=== PATIENT | female | born 2000 | race Caucasian/White ===

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

== ENCOUNTER → 2020-02-24 | Outpatient (CLI) | payer OTHER ==
[2020-02-24 09:40] LABS: Basophils % (A) 0 %; Eosinophils # (A) 0.1 k/uL (0-0.7); Eosinophils % (A) 1 %; HCT 44.9 % (34.0-46.0); HGB 14.4 gm/dL (11.4-16.0); Lymphocytes # (A) 2.6 k/uL (1.0-4.8); Lymphocytes % (A) 31 %; MCH 29.5 pg (25.0-35.0); MCHC 32.1 g/dL (31.0-37.0); MCV 91.9 fL (80.0-100.0); Mean Platelet Volume 6.3; Monocytes # (A) 0.3 k/uL (0-1.0); Monocytes % (A) 4 %; Neutrophils # (A) 5.3 k/uL (1.3-7.7); Neutrophils % (A) 62 %; Platelet Count 482 k/uL (150-450); RBC 4.89 m/uL (3.80-5.40); RDW 11.9 % (11.5-15.5); WBC 8.6 k/uL (4.0-11.0)
[2020-02-24 15:05] LABS: African American GFR (CKD) 145.6 (60.0-200.0); Albumin 4.4 g/dL (3.80-4.90); Albumin/Globulin Ratio 1.63 (1.60-3.17); Anion Gap 9.1 mmol/L (4.00-12.00); BUN/Creat Ratio 21.43 Ratio (12.00-20.00); Calcium 9.6 mg/dL (8.7-10.3); Carbon Dioxide 25.9 mmol/L (21.6-31.8); Chol/HDL Ratio 3.14; Globulin 2.7 g/dL (1.6-3.3); LDL Cholesterol,Calculated 80.2 mg/dL (0.0-131.0); Non-African American GFR(CKD) 125.6 (60.0-200.0); Potassium 4.4 mmol/L (3.5-5.5); Total Bilirubin 0.3 mg/dL (0.2-1.2); Total Protein 7.1 g/dL (6.2-8.2); VLDL Calculation 24.8 mg/dL (5.00-40.00)
[2020-02-24 15:39] LABS: Hemoglobin A1C 11.4 % (4.0-6.0)
== END | disposition home or self-care (01) ==
LOC: LABWHC1 08:10
PROVIDERS: ATTEND Family Medicine
DX: F41.8 Other specified anxiety disorders (principal); G43.909 Migraine, unspecified, not intractable, without status migrainosus; E11.69 Type 2 diabetes mellitus with other specified complication
CPT/HCPCS: 36415; 80053; 80061; 82306; 83036; 84443; 85025

== ENCOUNTER → 2020-03-24 | Outpatient (CLI) | payer OTHER ==
--- NOTE | 2020-03-27 11:53 | HM ---
HOLTER MONITOR REPORT Patient was monitored for 24 hours. The baseline rhythm is a sinus mechanism with normal conduction, the average rate 105 beats per minute, minimum 69, maximum 172 beats per minute. Ventricular ectopic activity was not present, supraventricular ectopic activity was present in the form of rare single PACs. Episodes of sinus tachycardia was noted. Symptoms of lightheadedness, chest pain, suddenly awake, dizzy, did not correlate with any dysrhythmia. CONCLUSION: 1. Sinus mechanism, baseline rhythm with episode of sinus tachycardia. 2. Rare single PACs. 3. No ventricular ectopic activity. 4. Symptoms did not correlate with any dysrhythmia. MMODL / IJN: [id number] /
== END | disposition home or self-care (01) ==
LOC: RADECHMAIN 11:42
PROVIDERS: ATTEND Family Medicine
DX: R00.0 Tachycardia, unspecified (principal)
CPT/HCPCS: 93225; 93226

== ENCOUNTER → 2020-12-21 | Outpatient (CLI) | payer OTHER ==
--- NOTE | 2020-12-21 07:42 | MR ---
EXAMINATION TYPE: MR brain wo/w con DATE OF EXAM: 12/21/2020 COMPARISON: CT brain May 24, 2019 HISTORY: Chronic Migraines w/weakness and numbness TECHNIQUE: Multiplanar, multisequence images of the brain and brainstem is performed without and with IV contras t, utilizing 8ml mL intravenous Gadavist . FINDINGS: Diffusion weighted images demonstrate no evidence of a recent infarct or other diffusion ab normality. There is no extra-axial fluid collection or significant white matter signal abnormality. The ventricular system and cisternal spaces are normal in size and appearance. The brain volume is age appropriate. Midline structures demonstrate normal morphology. The craniocervical junction appears within normal limits. Post contrast images demonstrate no abnormal enhancement. The dural venous sinuses appear pa tent. The visualized sinuses are clear and the globes are intact. IMPRESSION: Unremarkable study. No suspicious abnormality is evident.
== END | disposition home or self-care (01) ==
LOC: RADMRIMAIN 06:37
PROVIDERS: ATTEND Family Medicine
DX: G43.909 Migraine, unspecified, not intractable, without status migrainosus (principal)
CPT/HCPCS: 70553; A9585

== ENCOUNTER → 2021-09-07 | Outpatient (CLI) | payer OTHER ==
[2021-09-07 18:41] LABS: Basophils # (A) 0.06 X 10*3/uL (0.00-0.10); Basophils % (A) 0.6 %; Eosinophils # (A) 0.15 X 10*3/uL (0.04-0.35); Eosinophils % (A) 1.6 %; HCT 43.6 % (37.2-46.3); HGB 14.2 g/dL (12.0-15.0); Immature Grans, Automated 0.2 %; Lymphocytes # (A) 2.97 X 10*3/uL (0.90-5.00); Lymphocytes % (A) 31.6 %; MCH 29.3 pg (27.0-32.0); MCHC 32.6 g/dL (32.0-37.0); MCV 89.9 fL (80.0-97.0); Monocytes # (A) 0.46 X 10*3/uL (0.20-1.00); Monocytes % (A) 4.9 %; NRBC Per 100 WBC 0 /100 WBCS (0.0-0.0); Neutrophils # (A) 5.74 X 10*3/uL (1.80-7.70); Neutrophils % (A) 61.1 %; Platelet Count 537 X 10*3/uL (140-440); RBC 4.85 X 10*6/uL (4.10-5.20); RDW 12.1 % (11.5-14.5)
[2021-09-07 19:19] LABS: ALT 23 U/L (8-44); AST 25 U/L (13-35); African American GFR (CKD) 141.3 (60.0-200.0); Albumin 4.3 g/dL (3.8-4.9); Albumin/Globulin Ratio 1.17 (1.60-3.17); Alkaline Phosphatase 130 U/L (41-126); BUN/Creat Ratio 13.43 Ratio (12.00-20.00); Blood Urea Nitrogen 9.5 mg/dL (9.0-27.0); Calcium 9.9 mg/dL (8.7-10.3); Carbon Dioxide 21.2 mmol/L (20.0-27.5); Chloride 99 mmol/L (96-109); Globulin 3.7 g/dL (1.6-3.3); Glucose 336 mg/dL (70-110); Potassium 4.3 mmol/L (3.5-5.5); Rheumatoid Factor, Qnt <10 IU/mL (0-15); Sodium 136 mmol/L (135-145)
[2021-09-07 19:23] LABS: Erythrocyte Sedimentation Rate 19 mm/Hr (0-20)
== END | disposition home or self-care (01) ==
LOC: LABWHC1 11:51
PROVIDERS: ATTEND Nurse Practitioner Acute Care
DX: R42 Dizziness and giddiness (principal); G43.909 Migraine, unspecified, not intractable, without status migrainosus; H53.9 Unspecified visual disturbance; E55.9 Vitamin D deficiency, unspecified; E53.9 Vitamin B deficiency, unspecified
CPT/HCPCS: 36415; 80053; 82306; 82607; 84207; 85025; 85652; 86038; 86431

== ENCOUNTER 2023-11-12 22:52 | Inpatient (IN) | payer MEDICAID, OTHER ==
--- NOTE | 2023-11-12 23:20 | ED ---
Psych HPI <Marcio Ortega - Last Filed: 11/13/23 10:38> - General Source: patient, RN notes reviewed, old records reviewed Mode of arrival: ambulatory Limitations: no limitations - History of Present Illness MD Complaint: suicidal ideation, feels depressed -: days(s) Associated Psychiatric Symptoms: depression, suicidal ideation History of same: Yes Quality: constant Context: significant life stressor Associated Symptoms: denies other symptoms Treatments Prior to Arrival: placed on mental health hold If Self Harm: admits thoughts of self harm <Stephen Jenkins - Last Filed: 11/15/23 02:44> - General Chief Complaint: Psychiatric Symptoms Stated Complaint: LE Petition Time Seen by Provider: 11/12/23 23:08 - History of Present Illness Initial Comments: This is a 23-year-old female who is presenting today for evaluation of suicidal thoughts with petition by the police department for psychiatric evaluation and treatment. Patient admits to current suicidal ideation (Stephen Jenkins) - Related Data Home Medications Medication Instructions Recorded Confirmed Albuterol Inhaler [Ventolin Hfa 2 puff INHALATION RT-Q4H PRN 11/13/23 11/13/23 Inhaler] Cetirizine HCl [Zyrtec] 10 mg PO DAILY 11/13/23 11/13/23 INSULIN LISPRO (For Pump) [humaLOG 0.01 units SQ-PUMP CONTINUOUS MDD 11/13/23 11/13/23 (For Pump)] 120 units Medroxyprogesterone Acetate 150 mg IM Q90D 11/13/23 11/13/23 [Depo-Provera] Metoprolol Succinate (ER) [Toprol 100 mg PO DAILY 11/13/23 11/13/23 Xl] Ondansetron Odt [Zofran Odt] 4 mg PO Q8H PRN 11/13/23 11/13/23 Pantoprazole [Protonix] 40 mg PO DAILY 11/13/23 11/13/23 Pregabalin [Lyrica] 150 mg PO TID 11/13/23 11/13/23 Rizatriptan Benzoate [Rizatriptan] 10 mg PO BID PRN MDD 20 MG 11/13/23 11/13/23 Topiramate 100 mg PO BID 11/13/23 11/13/23 Venlafaxine HCl [Effexor XR] 150 mg PO DAILY 11/13/23 11/13/23 hydrOXYzine HCL [Atarax] 10 mg PO HS PRN 11/13/23 11/13/23 Allergies Allergy/AdvReac Type Severity Reaction Status Date / Time fluoxetine AdvReac FACIAL TIC Verified 11/13/23 21:16 prochlorperazine AdvReac had Verified 11/13/23 21:16 [From Compazine] "psychotic episode" Review of Systems ROS Other: All systems not noted in ROS Statement are negative. <Marcio Ortega - Last Filed: 11/13/23 10:38> ROS Other: All systems not noted in ROS Statement are negative. <Stephen Jenkins - Last Filed: 11/15/23 02:44> ROS Statement: Those systems with pertinent positive or pertinent negative responses have been documented in the HPI. Past Medical History Additional Past Medical History / Comment(s): ORLY History of Any Multi-Drug Resistant Organisms: None Reported Additional Past Surgical History / Comment(s): ORLY Past Psychological History: Anxiety, Depression, PTSD Smoking Status: Vaper Past Alcohol Use History: Rare Past Drug Use History: Marijuana <Stephen Jenkins - Last Filed: 11/15/23 02:44> General Exam Limitations: no limitations General appearance: alert, in no apparent distress Head exam: Present: atraumatic, normocephalic, normal inspection Eye exam: Present: normal appearance, PERRL, EOMI. Absent: scleral icterus, conjunctival injection, periorbital swelling ENT exam: Present: normal exam, mucous membranes moist Neck exam: Present: normal inspection. Absent: tenderness, meningismus, lymphadenopathy Respiratory exam: Present: normal lung sounds bilaterally. Absent: respiratory distress, wheezes, rales, rhonchi, stridor Cardiovascular Exam: Present: regular rate, normal rhythm, normal heart sounds. Absent: systolic murmur, diastolic murmur, rubs, gallop, clicks GI/Abdominal exam: Present: soft, normal bowel sounds. Absent: distended, tenderness, guarding, rebound, rigid Extremities exam: Present: normal inspection, full ROM, normal capillary refill. Absent: tenderness, pedal edema, joint swelling, calf tenderness Back exam: Present: normal inspection Neurological exam: Present: alert, oriented X3, CN II-XII intact Psychiatric exam: Present: normal affect, normal mood Skin exam: Present: warm, dry, intact, normal color. Absent: rash <Stephen Jenkins - Last Filed: 11/15/23 02:44> Course <Stephen Jenkins - Last Filed: 11/15/23 02:44> Vital Signs 11/12/23 11/13/23 11/13/23 22:54 00:43 06:26 Temperature 98.1 F 98.1 F Pulse Rate 156 H 112 H 114 H Respiratory 16 18 18 Rate Blood Pressure 123/98 124/91 128/88 O2 Sat by Pulse 97 99 100 Oximetry 11/13/23 11/13/23 11/13/23 07:38 11:09 18:00 Temperature 98.2 F 98.7 F 98.8 F Pulse Rate 109 H 114 H 94 Respiratory 18 18 18 Rate Blood Pressure 130/91 114/80 135/91 O2 Sat by Pulse 100 100 98 Oximetry - Reevaluation(s) Reevaluation #1: 11/13/23 00:57 Medical records reviewed (Stephen Jenkins) Reevaluation #2: 11/13/23 00:57 Medically cleared for psychiatric evaluation (Stephen Jenkins) Reevaluation #3: Was pt. sent in by a medical professional or institution ([facility], [facility], urgent care, hospital, or penitentiary...) When possible be specific @ -no Did you speak to anyone other than the patient for history (EMS, parent, family, police, friend...)? What history was obtained from this source @ -no Did you review nursing and triage notes (agree or disagree)? Why? @ -agree Are old charts reviewed (outside hosp., previous admission, EMS record, old EKG, old radiological studies, urgent care reports/EKG's, penitentiary records)? Report findings @ -yes Differential Diagnosis (chest pain, altered mental status, abdominal pain women, abdominal pain men, vaginal bleeding, weakness, fever, dyspnea, syncope, headache, dizziness, GI bleed, back pain, seizure, CVA, palpatations, mental health, musculoskeletal)? @ -prior EKG interpreted by me (3pts min.). @ -no X-rays interpreted by me (1pt min.). @ -no CT interpreted by me (1pt min.). @ -no U/S interpreted by me (1pt. min.). @ -no What testing was considered but not performed or refused? (CT, X-rays, U/S, labs)? Why? @ -none What meds were considered but not given or refused? Why? @ -none Did you discuss the management of the patient with other professionals (professionals i.e. , PA, REBEAMER, lab, RT, psych nurse, social media content specialist, fitness manager, teacher, investment officer, correctional counselor/case manager)? Give summary @ -no Was smoking cessation discussed for >3mins.? @ -no Was critical care preformed (if so, how long)? @ -no Were there social determinants of health that impacted care today? How? (Homelessness, low income, unemployed, alcoholism, drug addiction, transportation, low edu. Level, literacy, decrease access to med. care, residential, rehab)? @ -none Was there de-escalation of care discussed even if they declined (Discuss DNR or withdrawal of care, Hospice)? DNR status @ -no What co-morbidities impacted this encounter? (DM, HTN, Smoking, COPD, CAD, Cancer, CVA, ARF, Chemo, Hep., AIDS, mental health diagnosis, sleep apnea, morbid obesity)? @ -none Was patient admitted / discharged? Hospital course, mention meds given and route, prescriptions, significant lab abnormalities, going to OR and other pertinent info. @ - 23 female will be admitted for psychiatric evaluation and treatment Transferred for psychiatric evaluation and treatment Undiagnosed new problem with uncertain prognosis? @ -no Drug Therapy requiring intensive monitoring for toxicity (Heparin, Nitro, Insulin, Cardizem)? @ -no Were any procedures done? @ -no Diagnosis/symptom? @ -Psychiatric illness Acute, or Chronic, or Acute on Chronic? @ -Acute Uncomplicated (without systemic symptoms) or Complicated (systemic symptoms)? @ -Complicated Side effects of treatment? @ -no Exacerbation, Progression, or Severe Exacerbation? @ -exacerbation Poses a threat to life or bodily function? How? (Chest pain, [place], [place], pneumonia, PE, COPD, DKA, ARF, appy, cholecystitis, CVA, Diverticulitis, Homicidal, Suicidal, threat to staff... and all critical care pts) @ -yes mental health (Stephen Jenkins) Reevaluation #4: Differential Mental Health Depression, anxiety, bipolar, psychosis, schizophrenia, borderline personality, situational depression, adjustment disorder, behavioral disorder, brain tumor, malingering, substance abuse, encephalopathy, medication reaction, dementia, hypothyroidism, degenerative neurologic disorder, lupus.... This is not meant to be all-inclusive list (Stephen Jenkins) Medical Decision Making - Lab Data Result diagrams: 11/14/23 10:02 11/14/23 10:02 <Stephen Jenkins - Last Filed: 11/15/23 02:44> - Medical Decision Making 23 female will be admitted for psychiatric evaluation and treatment (Stephen Jenkins) - Lab Data Lab Results 11/13/23 11/13/23 11/13/23 Range/Units 06:28 11:04 11:04 POC Glucose (mg/dL) 145 H (70-110) mg/dL POC Glu Wheel And Pinion Inspector ID Damaris Wayne Urine Color Yellow Urine Appearance Turbid H (Clear) Urine pH 5.5 (5.0-8.0) Ur Specific [place] 1.023 (1.001-1.035) Urine Protein Trace H (Negative) Urine Glucose (UA) 1+ H (Negative) Urine Ketones 2+ H (Negative) Urine Blood Negative (Negative) Urine Nitrite Negative (Negative) Urine Bilirubin Negative (Negative) Urine Urobilinogen <2.0 (<2.0) mg/dL Ur Leukocyte Esterase Large H (Negative) Urine RBC 2 (0-5) /hpf Urine WBC 35 H (0-5) /hpf Ur Squamous Epith Cells 3 (0-4) /hpf Urine Bacteria Rare H (None) /hpf Urine Mucus Many H (None) /hpf Urine HCG, Qual (Not Detectd) Urine Opiates Screen Not Detected (NotDetected) Ur Oxycodone Screen Not Detected (NotDetected) Urine Methadone Screen Not Detected (NotDetected) Ur Barbiturates Screen Not Detected (NotDetected) U Tricyclic Antidepress Not Detected (NotDetected) Ur Phencyclidine Scrn Not Detected (NotDetected) Ur Amphetamines Screen Not Detected (NotDetected) U Methamphetamines Scrn Not Detected (NotDetected) U Benzodiazepines Scrn Detected H (NotDetected) Urine Cocaine Screen Not Detected (NotDetected) U Marijuana (THC) Screen Not Detected (NotDetected) SARS-CoV-2 (PCR) (Not Detectd) 11/13/23 11/13/23 11/13/23 Range/Units 11:04 11:11 11:17 POC Glucose (mg/dL) 173 H (70-110) mg/dL POC Glu Wheel And Pinion Inspector ID Emily Cabello Urine Color Urine Appearance (Clear) Urine pH (5.0-8.0) Ur Specific [place] (1.001-1.035) Urine Protein (Negative) Urine Glucose (UA) (Negative) Urine Ketones (Negative) Urine Blood (Negative) Urine Nitrite (Negative) Urine Bilirubin (Negative) Urine Urobilinogen (<2.0) mg/dL Ur Leukocyte Esterase (Negative) Urine RBC (0-5) /hpf Urine WBC (0-5) /hpf Ur Squamous Epith Cells (0-4) /hpf Urine Bacteria (None) /hpf Urine Mucus (None) /hpf Urine HCG, Qual Not Detected (Not Detectd) Urine Opiates Screen (NotDetected) Ur Oxycodone Screen (NotDetected) Urine Methadone Screen (NotDetected) Ur Barbiturates Screen (NotDetected) U Tricyclic Antidepress (NotDetected) Ur Phencyclidine Scrn (NotDetected) Ur Amphetamines Screen (NotDetected) U Methamphetamines Scrn (NotDetected) U Benzodiazepines Scrn (NotDetected) Urine Cocaine Screen (NotDetected) U Marijuana (THC) Screen (NotDetected) SARS-CoV-2 (PCR) Not Detected (Not Detectd) 11/13/23 Range/Units 18:47 POC Glucose (mg/dL) 140 H (70-110) mg/dL POC Glu Wheel And Pinion Inspector ID Winchester, Sushma Urine Color Urine Appearance (Clear) Urine pH (5.0-8.0) Ur Specific [place] (1.001-1.035) Urine Protein (Negative) Urine Glucose (UA) (Negative) Urine Ketones (Negative) Urine Blood (Negative) Urine Nitrite (Negative) Urine Bilirubin (Negative) Urine Urobilinogen (<2.0) mg/dL Ur Leukocyte Esterase (Negative) Urine RBC (0-5) /hpf Urine WBC (0-5) /hpf Ur Squamous Epith Cells (0-4) /hpf Urine Bacteria (None) /hpf Urine Mucus (None) /hpf Urine HCG, Qual (Not Detectd) Urine Opiates Screen (NotDetected) Ur Oxycodone Screen (NotDetected) Urine Methadone Screen (NotDetected) Ur Barbiturates Screen (NotDetected) U Tricyclic Antidepress (NotDetected) Ur Phencyclidine Scrn (NotDetected) Ur Amphetamines Screen (NotDetected) U Methamphetamines Scrn (NotDetected) U Benzodiazepines Scrn (NotDetected) Urine Cocaine Screen (NotDetected) U Marijuana (THC) Screen (NotDetected) SARS-CoV-2 (PCR) (Not Detectd) Disposition Time of Disposition: 10:39 <Marcio Ortega M - Last Filed: 11/13/23 10:38> <Stephen Jenkins - Last Filed: 11/15/23 02:44> Clinical Impression: Depression, Suicidal ideation Disposition: TRANSFER TO PSYCH HOSP/UNIT
[2023-11-13 06:30] LABS: Glucose,Whole Blood 145 mg/dL (70-110)
[2023-11-13] MEDS: ONDANSETRON ODT 4 MG TAB PO STA (09:07)
[2023-11-13 11:18] LABS: Glucose,Whole Blood 173 mg/dL (70-110)
[2023-11-13] MEDS ORDERED: ALBUTEROL NEBULIZED 2.5 MG/3 ML INHALATION PRN (11:19)
[2023-11-13] MEDS: METOPROLOL SUCCINATE (ER) 100 MG TAB.ER.24H PO STA (11:33)
[2023-11-13 11:37] LABS: Amphetamine Screen,Urine Not Detected (NotDetected); Barbiturate Screen,Urine Not Detected (NotDetected); Benzodiazepines Screen,Urine Detected (NotDetected); Cocaine Screen,Urine Not Detected (NotDetected); Methadone Screen, Urine Not Detected (NotDetected); Opiate Screen,Urine Not Detected (NotDetected); Oxycodone Screen, Urine Not Detected (NotDetected); Phencyclidine Screen,Urine Not Detected (NotDetected); Tricyclic Antidepressant,Urine Not Detected (NotDetected); Urn Cannabinoid Scrn Not Detected (NotDetected)
[2023-11-13] MEDS: PREGABALIN 75 MG CAP PO SCH (16:36)
[2023-11-13] MEDS: ONDANSETRON ODT 4 MG TAB PO PRN (17:51)
[2023-11-13 18:49] LABS: Glucose,Whole Blood 140 mg/dL (70-110)
[2023-11-13] MEDS ORDERED: LORazepam 2 MG/ML INJ IM PRN (19:53)
[2023-11-13] MEDS ORDERED: MAG HYDROX/AL HYDROX/SIMETH 355 ML BOTTLE PO PRN (19:53)
[2023-11-13] MEDS ORDERED: MAGNESIUM HYDROXIDE 2,400 MG/30 ML CUP PO PRN (19:53)
[2023-11-13] MEDS ORDERED: IBUPROFEN 600 MG TAB PO PRN (19:53)
[2023-11-13] MEDS: TOPIRAMATE 100 MG TAB PO SCH (21:09)
[2023-11-13] MEDS: INSULIN ASPART (NovoLOG) 100 UNIT/ML VIAL SQ SCH (21:10)
[2023-11-13 21:11] LABS: Glucose,Whole Blood 184 mg/dL (70-110)
[2023-11-13] MEDS ORDERED: VENLAFAXINE HCL ER 150 MG CAP PO SCH (21:14)
[2023-11-13 21:31] LABS: Appearance,Urine Turbid (Clear); Bacteria,Urine Rare /hpf; Bilirubin,Urine Negative (Negative); Blood,Urine Negative (Negative); Color,Urine Yellow; Glucose,Urine (UA) 1+ (Negative); Leukocyte Esterase,Urine Large (Negative); Mucus,Urine Many /hpf; Nitrite,Urine Negative (Negative); PH, Urine 5.5 (5.0-8.0); Protein,Urine Trace (Negative); RBC,Urine 2 /hpf (0-5); Specific Gravity,Urine 1.023 (1.001-1.035); Squamous Epithelial Cell,Urine 3 /hpf (0-4); Urobilinogen,Urine <2.0 mg/dL (<2.0); WBC,Urine 35 /hpf (0-5)
[2023-11-13 21:37] LABS: Ketones,Urine 2+ (Negative)
[2023-11-13] MEDS: INSULIN LISPRO (For Pump) 100 UNIT/ML VIAL SQ-PUMP SCH (21:41)
[2023-11-13] MEDS ORDERED: DEXTROSE 50% SYRINGE 50 ML IVP PRN ×2 (21:43)
[2023-11-13] MEDS: VENLAFAXINE HCL ER 150 MG CAP PO SCH (21:48)
[2023-11-13] MEDS: INSULIN DETEMIR (LEVEMIR) 100 UNIT/ML SYR SQ SCH (22:18)
[2023-11-13] MEDS: guaiFENesin SYRUP 100MG/5ML 200 MG/10 ML CUP PO PRN (22:18)
[2023-11-13] MEDS: SUMAtriptan succinate 50 MG TAB PO PRN (22:18)
[2023-11-14 00:08] LABS: Glucose,Whole Blood 238 mg/dL (70-110)
[2023-11-14] MEDS: hydrOXYzine HCL 10 MG TAB PO PRN (00:22)
[2023-11-14] MEDS: PANTOPRAZOLE 40 MG TABLET PO SCH (00:22)
[2023-11-14 05:38] LABS: Glucose,Whole Blood 381 mg/dL (70-110)
[2023-11-14 07:42] LABS: Glucose,Whole Blood 351 mg/dL (70-110)
[2023-11-14] MEDS ORDERED: VENLAFAXINE HCL ER 150 MG CAP PO SCH (09:00)
[2023-11-14] MEDS ORDERED: PANTOPRAZOLE 40 MG TABLET PO SCH (09:00)
[2023-11-14] MEDS: NICOTINE 14MG/24HR PATCH TRANSDERM SCH (09:08)
[2023-11-14] MEDS: METOPROLOL SUCCINATE (ER) 100 MG TAB.ER.24H PO SCH (09:08)
[2023-11-14] MEDS: LORATADINE 10 MG TAB PO SCH (09:09)
[2023-11-14 09:46] LABS: Glucose,Whole Blood 322 mg/dL (70-110)
[2023-11-14] MEDS: INSULIN DETEMIR (LEVEMIR) 100 UNIT/ML SYR SQ SCH ×2 (10:56→21:34)
[2023-11-14 11:03] LABS: Glucose,Whole Blood 389 mg/dL (70-110)
[2023-11-14 11:25] LABS: ALT 17 U/L (4-34); AST 22 U/L (14-36); African American GFR (CKD) >90 (>60 ml/min/1.73 sqM); Albumin 4.3 g/dL (3.5-5.0); Alkaline Phosphatase 116 U/L (38-126); Anion Gap 15 mmol/L; Blood Urea Nitrogen 6 mg/dL (7-17); Calcium 10.2 mg/dL (8.4-10.2); Carbon Dioxide 16 mmol/L (22-30); Chloride 107 mmol/L (98-107); Glucose 375 mg/dL (74-99); Non-African American GFR(CKD) >90 (>60 ml/min/1.73 sqM); Potassium 4.4 mmol/L (3.5-5.1); Sodium 138 mmol/L (137-145); Total Protein 7.7 g/dL (6.3-8.2)
[2023-11-14 11:31] LABS: Basophils # (A) 0.1 k/uL (0-0.2); Basophils % (A) 0 %; Eosinophils # (A) 0.1 k/uL (0-0.7); Eosinophils % (A) 1 %; HCT 47.4 % (34.0-46.0); HGB 15.5 gm/dL (11.4-16.0); Lymphocytes # (A) 2.3 k/uL (1.0-4.8); Lymphocytes % (A) 17 %; MCH 28.7 pg (25.0-35.0); MCHC 32.6 g/dL (31.0-37.0); MCV 88.1 fL (80.0-100.0); Mean Platelet Volume 6.9; Monocytes # (A) 0.9 k/uL (0-1.0); Monocytes % (A) 6 %; Neutrophils # (A) 10.1 k/uL (1.3-7.7); Neutrophils % (A) 74 %; Platelet Count 705 k/uL (150-450); RBC 5.38 m/uL (3.80-5.40); RDW 13.3 % (11.5-15.5); WBC 13.8 k/uL (3.8-10.6)
[2023-11-14] MEDS: INSULIN ASPART (NovoLOG) 100 UNIT/ML VIAL SQ SCH ×3 (12:00→17:43)
[2023-11-14] MEDS ORDERED: hydrOXYzine pamoate 25 MG CAP PO PRN (12:15)
--- NOTE | 2023-11-14 12:26 | P.HP ---
Psychiatric H&P - . H&P Date: 11/14/23 History & Physical: Allergies Allergy/AdvReac Type Severity Reaction Status Date / Time fluoxetine AdvReac FACIAL TIC Verified 11/13/23 21:16 prochlorperazine AdvReac had Verified 11/13/23 21:16 [From Compazine] "psychotic episode" Vital Signs Temp 97.8 F 11/13/23 19:49 Pulse 106 H 11/13/23 19:49 Resp 16 11/13/23 19:49 BP 125/77 11/13/23 19:49 Pulse Ox 96 11/13/23 19:49 FiO2 Intake & Output 11/13/23 11/14/23 11/14/23 18:59 06:59 18:59 Weight 105.6 kg Laboratory Last Values POC Glucose (mg/dL) 351 mg/dL (70-110) H 11/14/23 07:41 POC Glu Contract Sheltered Workshop Supervisor ID Patricia Madrid 11/14/23 07:41 Urine Color Yellow 11/13/23 11:04 Urine Appearance Turbid (Clear) H 11/13/23 11:04 Urine pH 5.5 (5.0-8.0) 11/13/23 11:04 Ur Specific [place] 1.023 (1.001-1.035) 11/13/23 11:04 Urine Protein Trace (Negative) H 11/13/23 11:04 Urine Glucose (UA) 1+ (Negative) H 11/13/23 11:04 Urine Ketones 2+ (Negative) H 11/13/23 11:04 Urine Blood Negative (Negative) 11/13/23 11:04 Urine Nitrite Negative (Negative) 11/13/23 11:04 Urine Bilirubin Negative (Negative) 11/13/23 11:04 Urine Urobilinogen <2.0 mg/dL (<2.0) 11/13/23 11:04 Ur Leukocyte Esterase Large (Negative) H 11/13/23 11:04 Urine RBC 2 /hpf (0-5) 11/13/23 11:04 Urine WBC 35 /hpf (0-5) H 11/13/23 11:04 Ur Squamous Epith Cells 3 /hpf (0-4) 11/13/23 11:04 Urine Bacteria Rare /hpf (None) H 11/13/23 11:04 Urine Mucus Many /hpf (None) H 11/13/23 11:04 Urine HCG, Qual Not Detected (Not Detectd) 11/13/23 11:04 Urine Opiates Screen Not Detected (NotDetected) 11/13/23 11:04 Ur Oxycodone Screen Not Detected (NotDetected) 11/13/23 11:04 Urine Methadone Screen Not Detected (NotDetected) 11/13/23 11:04 Ur Barbiturates Screen Not Detected (NotDetected) 11/13/23 11:04 U Tricyclic Antidepress Not Detected (NotDetected) 11/13/23 11:04 Ur Phencyclidine Scrn Not Detected (NotDetected) 11/13/23 11:04 Ur Amphetamines Screen Not Detected (NotDetected) 11/13/23 11:04 U Methamphetamines Scrn Not Detected (NotDetected) 11/13/23 11:04 U Benzodiazepines Scrn Detected (NotDetected) H 11/13/23 11:04 Urine Cocaine Screen Not Detected (NotDetected) 11/13/23 11:04 U Marijuana (THC) Screen Not Detected (NotDetected) 11/13/23 11:04 SARS-CoV-2 (PCR) Not Detected (Not Detectd) 11/13/23 11:11 11/14/23 08:51 IDENTIFYING DATA: Patient is a 23-year-old female who is single, has no children, and lives with mom and sister. Unemployed. HPI: Patient presented to the hospital ED on 11/11. As per EPS note, "Clinician met with Abigail in ER 14 to eval. Cl lying in bed, A/O x4 presenting with SI w attempt via cutting right wrist supperficiallly. Cl initially on PET via PD that states " Patient stated that she intends to bleed herself out via cutting." Cl is reported to have used a gill box fixer. Cl states this was brought on by recent break up with their partner of 12 mo's including anxiety/depression over last 30 days that has increased. Cl reports hx of depression/anxiety/PTSD. Cl presents tearful, overwhelmed, anxious, crying spells, complaints of poor medical care, feels they are dehydrated, nausea, situational/circumstatial stressors. Cl states " I feel like my world is falling apart, she meant everything to me." Cl reports loss of interest, motivation, low energy, isolating at times, and aud hallucinations (muffled voices) and occasional paranoia. Cl reports using THC to cope. Cl is not working and has " lost" their soc sec benefits recently. Cl reports medical issues has added to the stress." Patient was petitioned by police, however, signed in voluntarily. Upon todays interview, she states that she is going through a really tough break up. They were together just under a year. She states that her fiance told her she had found some one else, who lives in [place]. This happened about two weeks ago. She states that she has had anxiety and depression for the past 10 years, but recently it has gotten worse. He ex called police to do a welfare check on the patient, and the cross tie tram loader brought her into the hospital. She states that she cut her wrist with a gill box fixer, only to self harm. She states she hears spirits talking to her. She states that her sleep has not been good, and she normally has problems sleeping. She states she has not had an appetite lately. Patient denies any suicidal or homicidal ideations intent or plan. At this time patient denies any auditory or visual hallucinations. Patient denies any flight of ideas racing thoughts and increased in goal directed behavior. Patient admits to using marijuana, however, UDS was negative. No cigarettes or alcohol. PAST PSYCHIATRIC HISTORY: Patient states that she does not have any outpatient psych provider. She is prescribed Effexor XR 150mg from her PCP. She has never been admitted to a psychiatric facility. Patient denies any history of suicide attempts in the past. PMH:As per ER note ALLERGIES: as per EMR CHEMICAL DEPENDENCY HISTORY: as per HPI FAMILY PSYCHIATRIC/SUBSTANCE USE HISTORY: anxiety, depression and PTSD in her family. SOCIAL HISTORY: Patient was born and raised in [place], [place]. College graduate. [employer] in [employer]. Single, not , no children. Lives with her mom and sister. Unemployed.. MENTAL STATUS EXAM: General Appearance: Patient appears to be stated age is alert, directable, and attempts to cooperate. Patient appears to have fair hygiene and grooming. Short blonde hair, shaved around the bottom, multiple piercings and tattoos, wearing glasses. Dressed in a hospital gown. Behavior: Patient is seated without any agitated behavior. Speech: Patient's speech is fluent and nonpressured. Mood/Affect: Patient reports their mood is [depressed and anxious, affect is congruent and constricted. Suicidality/Homicidality: Patient denies having any homicidal ideation intent or plan. Denies any suicidal ideations intent or plan Perceptions: Patient denies any visual hallucinations and denies any auditory hallucinations, however states she hears spirits speaking to her. Though content/process: There is no evidence of any delusional thought content and thought process is linear and goal-directed. Memory and concentration: AOX3, grossly intact for the purposes of this session. Can spell "WORLD" backwards Judgment and insight: poor STRENGTHS/WEAKNESSES: strength is that patient is [resilient]. Weakness is that patient [has poor judgment and is impulsive INTELLECT: average IMPRESSIONS: Major depressive disorder, without psychotic features anxiety disorder unspecified rule out personality disorder likely cluster b [cannabis use disorder] PLAN: -Patient is admitted under voluntary status to [facility] for stabilization of psychiatric symptoms and safety. Patient has signed adult voluntary form and medication consent and is placed in patient's chart. -Medications : Will start patient on Remeron 15mg qhs for sleep/mood adjunct, Effexor XR 225mg qhs for mood/anxiety, add visteral 25mg q6 hours PRN for anxiety -Ativan and Haldol PRN for agitation/aggression -Patient was informed of the risks, benefits and side effects of the medication and patient verbally consented to taking the medications. -Internal Medicine consult to perform medical evaluation and physical. -NRT - nonsmoker - on board for discharge planning. Encourage patient to participate in groups to work on coping skills. 11/14/23 11:46 11/14/23 12:20
[2023-11-14 12:54] LABS: Glucose,Whole Blood 392 mg/dL (70-110)
--- NOTE | 2023-11-14 13:11 | P.CONS ---
History of Present Illness - Reason for Consult Consult date: 11/14/23 medical management, insulin Requesting physician: Calvin oJhnson - History of Present Illness This is a 23-year-old female with medical history significant for type 1 diabetes mellitus 1 dependent, asthma, fibromyalgia, anxiety/depression/PTSD and reports marijuana use. Patient was brought into the hospital overnight secondary to suicidal ideations was petitioned for mental health evaluation and treatment. Patient lives with mother and sister states she has good family support. Recently going through a "and breakup and other life issues." Today states overall her mood has improved. Patient is maintained on an insulin pump which has been removed while on the psychiatric unit secondary to suicidal thoughts and the safety factor of patient having this insulin pump with continuous basal insulin infusing the ability to give herself insulin at her discretion. Additionally patients continuous glucose monitoring for her pump is used with her cell phone which she is unable to have on the unit as well. Patient does report headache today, states she feels like she may be going into DKA. Her blood glucose has been increasing. Patient's urine drug toxicology did test positive for benzodiazepines, urinalysis was not suggestive of any infection there was 2+ ketones 1+ glucose, her [id number] glucose has been running in the 100s and now up to 322. We will add additional long-acting insul in. REVIEW OF SYSTEMS: CONSTITUTIONAL: No fever, no malaise, no fatigue. Reports headache HEENT: No recent visual problems or hearing problems. Denied any sore throat. CARDIOVASCULAR: No chest pain, orthopnea, PND, no palpitations, no syncope. PULMONARY: No shortness of breath, no cough, no hemoptysis. GASTROINTESTINAL: No diarrhea, no nausea, no vomiting, no abdominal pain. NEUROLOGICAL: No headaches, no weakness, no numbness. HEMATOLOGICAL: Denies any bleeding or petechiae. GENITOURINARY: Denies any burning micturition, frequency, or urgency. MUSCULOSKELETAL/RHEUMATOLOGICAL: Denies any joint pain, swelling, or any muscle pain. ENDOCRINE: Denies any polyuria or polydipsia. The rest of the 14-point review of systems is negative. PHYSICAL EXAMINATION: GENERAL: The patient is alert and oriented x3, not in any acute distress. Well developed, well nourished. HEENT: Pupils are round and equally reacting to light. EOMI. No scleral icterus. No conjunctival pallor. Normocephalic, atraumatic. No pharyngeal erythema. No thyromegaly. CARDIOVASCULAR: S1 and S2 present. No murmurs, rubs, or gallops. PULMONARY: Chest is clear to auscultation, no wheezing or crackles. ABDOMEN: Soft, nontender, nondistended, normoactive bowel sounds. No palpable organomegaly. MUSCULOSKELETAL: No joint swelling or deformity. EXTREMITIES: No cyanosis, clubbing, or pedal edema. NEUROLOGICAL: Gross neurological examination did not reveal any focal deficits. SKIN: No rashes. Assessment and plan Type 1 diabetes mellitus insulin-dependent patient is usually maintained on an insulin pump which has been discontinued while on the psychiatric unit for evaluation. Patient will be started on Levemir twice a day for basal insulin coverage as well as sliding scale and scheduled insulin. We will make further adjustments pending her blood glucose checks before meals and at bedtime. Suicidal ideations Anxiety/depression/PTSD history History of asthma with no acute exacerbation patient has been been resumed on her albuterol inhaler to use as needed History of migraines maintained on sumatriptan which has been resumed as needed as well as Topamax. History of fibromyalgia Marijuana use GI prophylaxis DVT prophylaxis early ambulation Full code As mentioned continue with Accu-Cheks ACHS and we will adjust insulin needs as needed. We will check acetone level. Patient will have scheduled meal time insulin added. Levemir has been increased. Blood glucose will be checked 2 hours after meal time and scheduled insulin for lunch and then can make further adjustments. Patient may have her blood glucose spot checked if she feels off with high or lows direct results to the provider and again further adjustments can be made. We will follow along with you this hospital with you. Thank you for this consultation. Greater than 35 minutes have been spent with his patient in consultation r egarding her blood sugars and management. The impression and plan of care has been dictated by Sandra Alatorre, Nurse Practitioner as directed. Dr. Susan MD I have performed a history and physical examination and medical decision making of this patient, discussed the same with the dictator, and agree with the dictators assessment and plan as written, documented as a scribe. Based on total visit time, I have performed more than 50% of this visit. Past Medical History Past Medical History: Asthma, Diabetes Mellitus, Fibromyalgia Additional Past Medical History / Comment(s): ORLY History of Any Multi-Drug Resistant Organisms: None Reported Additional Past Surgical History / Comment(s): ORLY Past Anesthesia/Blood Transfusion Reactions: Unable to Obtain Smoking Status: Never smoker Medications and Allergies Home Medications Medication Instructions Recorded Confirmed Type Albuterol Inhaler [Ventolin Hfa 2 puff INHALATION RT-Q4H PRN 11/13/23 11/13/23 History Inhaler] Cetirizine HCl [Zyrtec] 10 mg PO DAILY 11/13/23 11/13/23 History INSULIN LISPRO (For Pump) [humaLOG 0.01 units SQ-PUMP CONTINUOUS MDD 11/13/23 11/13/23 History (For Pump)] 120 units Medroxyprogesterone Acetate 150 mg IM Q90D 11/13/23 11/13/23 History [Depo-Provera] Metoprolol Succinate (ER) [Toprol 100 mg PO DAILY 11/13/23 11/13/23 History Xl] Ondansetron Odt [Zofran Odt] 4 mg PO Q8H PRN 11/13/23 11/13/23 History Pantoprazole [Protonix] 40 mg PO DAILY 11/13/23 11/13/23 History Pregabalin [Lyrica] 150 mg PO TID 11/13/23 11/13/23 History Rizatriptan Benzoate [Rizatriptan] 10 mg PO BID PRN MDD 20 MG 11/13/23 11/13/23 History Topiramate 100 mg PO BID 11/13/23 11/13/23 History Venlafaxine HCl [Effexor XR] 150 mg PO DAILY 11/13/23 11/13/23 History hydrOXYzine HCL [Atarax] 10 mg PO HS PRN 11/13/23 11/13/23 History Allergies Allergy/AdvReac Type Severity Reaction Status Date / Time fluoxetine AdvReac FACIAL TIC Verified 11/13/23 21:16 prochlorperazine AdvReac had Verified 11/13/23 21:16 [From Compazine] "psychotic episode" Physical Exam Vitals: Vital Signs Temp Pulse Pulse Resp BP BP Pulse Ox 11/13/23 19:49 97.8 F 106 H 16 125/77 96 11/13/23 18:00 98.8 F 94 18 135/91 98 11/13/23 11:09 98.7 F 114 H 18 114/80 100 Intake and Output 11/13/23 11/14/23 11/14/23 22:59 06:59 14:59 Other: Weight 105.6 kg Results CBC & Chem 7: 11/14/23 10:02 11/14/23 10:02 Labs: Abnormal Lab Results - Last 24 Hours (Table) 11/13/23 11/13/23 11/13/23 Range/Units 11:04 11:04 11:17 POC Glucose (mg/dL) 173 H (70-110) mg/dL Urine Appearance Turbid H (Clear) Urine Protein Trace H (Negative) Urine Glucose (UA) 1+ H (Negative) Urine Ketones 2+ H (Negative) Ur Leukocyte Esterase Large H (Negative) Urine WBC 35 H (0-5) /hpf Urine Bacteria Rare H (None) /hpf Urine Mucus Many H (None) /hpf U Benzodiazepines Scrn Detected H (NotDetected) 11/13/23 11/13/23 11/14/23 Range/Units 18:47 21:05 00:06 POC Glucose (mg/dL) 140 H 184 H 238 H (70-110) mg/dL Urine Appearance (Clear) Urine Protein (Negative) Urine Glucose (UA) (Negative) Urine Ketones (Negative) Ur Leukocyte Esterase (Negative) Urine WBC (0-5) /hpf Urine Bacteria (None) /hpf Urine Mucus (None) /hpf U Benzodiazepines Scrn (NotDetected) 11/14/23 11/14/23 11/14/23 Range/Units 05:37 07:41 09:44 POC Glucose (mg/dL) 381 H 351 H 322 H (70-110) mg/dL Urine Appearance (Clear) Urine Protein (Negative) Urine Glucose (UA) (Negative) Urine Ketones (Negative) Ur Leukocyte Esterase (Negative) Urine WBC (0-5) /hpf Urine Bacteria (None) /hpf Urine Mucus (None) /hpf U Benzodiazepines Scrn (NotDetected) Assessment and Plan Time with Patient: Greater than 30
[2023-11-14 14:00] LABS: Glucose,Whole Blood 254 mg/dL (70-110)
[2023-11-14] MEDS: INSULIN ASPART (NovoLOG) 100 UNIT/ML VIAL SQ ONE (16:28)
[2023-11-14] MEDS: ACETAMINOPHEN TAB 325 MG TAB PO PRN (17:28)
[2023-11-14 17:34] LABS: Glucose,Whole Blood 182 mg/dL (70-110)
[2023-11-14 19:42] LABS: Glucose,Whole Blood 211 mg/dL (70-110)
[2023-11-14 21:34] LABS: Glucose,Whole Blood 231 mg/dL (70-110)
[2023-11-14] MEDS: VENLAFAXINE HCL ER 75 MG CAP PO SCH (21:34)
[2023-11-14] MEDS: MIRTAZAPINE 15 MG TAB PO SCH (21:35)
[2023-11-14] MEDS: guaiFENesin 600 MG TABLET.ER PO PRN (21:36)
[2023-11-14 22:16] LABS: Chol/HDL Ratio 2.33 Ratio; LDL Cholesterol,Calculated 33.4 mg/dL (0.0-131.0)
[2023-11-15 02:28] LABS: Glucose,Whole Blood 172 mg/dL (70-110)
[2023-11-15 07:21] LABS: Glucose,Whole Blood 143 mg/dL (70-110)
[2023-11-15 07:43] LABS: Glucose,Whole Blood 146 mg/dL (70-110)
[2023-11-15] MEDS: ALBUTEROL INHALER 60 PUFF/8 GM INHALER (MHU) INHALATION PRN (09:33)
[2023-11-15] MEDS: hydrOXYzine pamoate 25 MG CAP PO SCH (10:48)
--- NOTE | 2023-11-15 10:55 | P.PN ---
Progress Note - Text Progress Note Date: 11/15/23 Interval History: Patient was seen wandering the hallways and was directable and agreeable to sp de with copy writer in the office. She states that she feels very tired, and keeps zoning out. She is endorsing depression and anxiety. She states that she slept well last night. She claims that her appetite is improving. She is going to groups, and participating on the unit. At this time patient denies any suicidal or homicidal ideations, intent or plan. Patient denies any auditory, visual hallucinations and denies any paranoia or delusions. Patient denies any side effects from the medications and has been compliant with meds. MENTAL STATUS EXAM: General Appearance: Patient appears to be stated age is alert, directable, and attempts to cooperate. Patient appears to have fair hygiene and grooming. Short blonde hair, shaved around the bottom, multiple piercings and tattoos, wearing glasses. Dressed casually. Behavior: Patient is seated without any agitated behavior. Speech: Patient's speech is fluent and nonpressured. Mood/Affect: Patient reports their mood is depressed and anxious, affect is congruent and constricted. Suicidality/Homicidality: Patient denies having any homicidal ideation intent or plan. Denies any suicidal ideations intent or plan Perceptions: Patient denies any visual hallucinations and denies any auditory hallucinations. Though content/process: There is no evidence of any delusional thought content and thought process is linear and goal-directed. Memory and concentration: AOX3, grossly intact for the purposes of this session. Judgment and insight: poor IMPRESSIONS: Major depressive disorder, without psychotic features anxiety disorder unspecified rule out personality disorder likely cluster b [cannabis use disorder] PLAN: -Patient is admitted under voluntary status to [facility] for stabilization of psychiatric symptoms and safety. Patient has signed adult voluntary form and medication consent and is placed in patient's chart. -Medications : Remeron 15mg qhs for sleep/mood adjunct, decrease Effexor XR 150mg qhs for mood/anxiety, Change vistaril 25mg daily scheduled + q6hr prn for anxiety. -Ativan and Haldol PRN for agitation/aggression -NRT - nonsmoker -SW on board for discharge planning. Encourage patient to participate in groups to work on coping skills. hopeful for discharge monday vs monday if patient is improving psychiatrically.
[2023-11-15 12:41] LABS: African American GFR (CKD) >90 (>60 ml/min/1.73 sqM); Anion Gap 13 mmol/L; Blood Urea Nitrogen 8 mg/dL (7-17); Calcium 9.1 mg/dL (8.4-10.2); Carbon Dioxide 17 mmol/L (22-30); Chloride 105 mmol/L (98-107); Glucose 378 mg/dL (74-99); Non-African American GFR(CKD) >90 (>60 ml/min/1.73 sqM); Potassium 3.8 mmol/L (3.5-5.1); Sodium 135 mmol/L (137-145)
[2023-11-15 12:47] LABS: Glucose,Whole Blood 362 mg/dL (70-110)
[2023-11-15] MEDS: LORazepam 1 MG TAB PO PRN (12:53)
[2023-11-15 17:11] LABS: Glucose,Whole Blood 353 mg/dL (70-110)
[2023-11-15 19:40] LABS: Glucose,Whole Blood 211 mg/dL (70-110)
[2023-11-15] MEDS: VENLAFAXINE HCL ER 150 MG CAP PO SCH (21:58)
[2023-11-15 22:06] LABS: Glucose,Whole Blood 171 mg/dL (70-110)
[2023-11-16 02:25] LABS: Glucose,Whole Blood 352 mg/dL (70-110)
[2023-11-16 07:53] LABS: Glucose,Whole Blood 254 mg/dL (70-110)
[2023-11-16 11:31] LABS: Glucose,Whole Blood 200 mg/dL (70-110)
--- NOTE | 2023-11-16 12:00 | P.PN ---
Progress Note - Text Progress Note Date: 11/16/23 Interval History: Patient was seen wandering the hallways and was directable and agreeable to sp de with technical writer in the office. She states that she feels quite anxious. She said that she is thinking about the break up quite a bit today, and it's giving her anxiety about going home to stay in the same place where her and her ex lived. She feels there are triggers at home, and it makes her feel panicked. She states that she slept well last night. She claims that her appetite is improving. She i s going to groups, and participating on the unit. At this time patient denies any suicidal or homicidal ideations, intent or plan. Patient denies any auditory, visual hallucinations and denies any paranoia or delusions. Patient denies any side effects from the medications and has been compliant with meds. MENTAL STATUS EXAM: General Appearance: Patient appears to be stated age is alert, directable, and attempts to cooperate. Patient appears to have fair hygiene and grooming. Short blonde hair, shaved around the bottom, multiple piercings and tattoos, wearing glasses. Dressed casually. Behavior: Patient is seated without any agitated behavior. Speech: Patient's speech is fluent and nonpressured. Mood/Affect: Patient reports their mood is anxious, affect is congruent and constricted. Suicidality/Homicidality: Patient denies having any homicidal ideation intent or plan. Denies any suicidal ideations intent or plan Perceptions: Patient denies any visual hallucinations and denies any auditory hallucinations. Though content/process: There is no evidence of any delusional thought content and thought process is linear and goal-directed. Memory and concentration: AOX3, grossly intact for the purposes of this session. Judgment and insight: poor IMPRESSIONS: Major depressive disorder, without psychotic features anxiety disorder unspecified cluster b personality disorder cannabis use disorder PLAN: -Patient is admitted under voluntary status to [facility] for stabilization of psychiatric symptoms and safety. Patient has signed adult voluntary form and medication consent and is placed in patient's chart. -Medications : increase Remeron 30mg qhs for sleep/mood adjunct, Effexor XR 150mg qhs for mood/anxiety, increase vistaril 25 mg daily scheduled 0900 and 1400 + q6 hr prn for anxiety -Ativan and Haldol PRN for agitation/aggression -NRT - nonsmoker -SW on board for discharge planning. Encourage patient to participate in groups to work on coping skills. hopeful for discharge monday vs monday if patient is improving psychiatrically.
[2023-11-16 12:48] LABS: Glucose,Whole Blood 173 mg/dL (70-110)
[2023-11-16] MEDS: hydrOXYzine pamoate 25 MG CAP PO SCH (14:02)
[2023-11-16 17:36] LABS: Glucose,Whole Blood 277 mg/dL (70-110)
[2023-11-16 19:41] LABS: Glucose,Whole Blood 250 mg/dL (70-110)
[2023-11-16 21:13] LABS: Glucose,Whole Blood 330 mg/dL (70-110)
[2023-11-16] MEDS: MIRTAZAPINE 15 MG TAB PO SCH (21:16)
[2023-11-17 01:49] LABS: Glucose,Whole Blood 254 mg/dL (70-110)
[2023-11-17 07:50] LABS: Glucose,Whole Blood 362 mg/dL (70-110)
--- NOTE | 2023-11-17 11:55 | P.PN ---
Progress Note - Text Progress Note Date: 11/17/23 Interval History: Patient was seen in her room and was directable and agreeable to speak with wr iter in the office. Today, she states that she is incredibly sleepy. She is endorsing a bit of anxiety still, she states her mood is neutral. She states that she slept alright last night. She was awoken to get her blood sugar taken, however, she had a little difficulty falling back asleep. She claims that her appetite back to normal. She continues going to groups, and participating on the unit. At this time patient denies any suicidal or homicidal ideations, intent or plan. Patient denies any auditory, visual hallucinations and denies any paranoia or delusions. Patient denies any side effects from the medications and has been compliant with meds. MENTAL STATUS EXAM: General Appearance: Patient appears to be stated age is alert, directable, and attempts to cooperate. Patient appears to have fair hygiene and grooming. Short blonde hair, shaved around the bottom, multiple piercings and tattoos, wearing glasses. Dressed casually. Behavior: Patient is seated without any agitated behavior. Speech: Patient's speech is fluent and nonpressured. Mood/Affect: Patient reports their mood is mildly anxious, affect is congruent and constricted. mildly improving Suicidality/Homicidality: Patient denies having any homicidal ideation intent or plan. Denies any suicidal ideations intent or plan Perceptions: Patient denies any visual hallucinations and denies any auditory hallucinations. Though content/process: There is no evidence of any delusional thought content and thought process is linear and goal-directed. Memory and concentration: AOX3, grossly intact for the purposes of this session. Judgment and insight: mildly improving IMPRESSIONS: Major depressive disorder, without psychotic features anxiety disorder unspecified cluster b personality disorder cannabis use disorder PLAN: -Patient is admitted under voluntary status to [facility] for stabilization of psychiatric symptoms and safety. Patient has signed adult voluntary form and medication consent and is placed in patient's chart. -Medications : Remeron 30 mg qhs for sleep/mood adjunct, Effexor XR 150mg qhs for mood/anxiety, d/c vistaril due to sedation, Add Buspar 10mg scheduled 0900 and 1400 can increase as tolerated over the weekend, visteral q6 hr prn for anxiety -Ativan and Haldol PRN for agitation/aggression -NRT - nonsmoker -SW on board for discharge planning. Encourage patient to participate in groups to work on coping skills. hopeful for discharge monday if patient is improving psychiatrically
[2023-11-17 13:05] LABS: Glucose,Whole Blood 301 mg/dL (70-110)
[2023-11-17] MEDS: busPIRone HCl 10 MG TAB PO SCH (14:25)
[2023-11-17 16:41] LABS: Glucose,Whole Blood 266 mg/dL (70-110)
[2023-11-17 17:44] LABS: Glucose,Whole Blood 310 mg/dL (70-110)
[2023-11-17 19:42] LABS: Glucose,Whole Blood 379 mg/dL (70-110)
[2023-11-18 01:55] LABS: Glucose,Whole Blood 219 mg/dL (70-110)
[2023-11-18 05:42] LABS: Glucose,Whole Blood 238 mg/dL (70-110)
[2023-11-18 08:02] LABS: Glucose,Whole Blood 318 mg/dL (70-110)
--- NOTE | 2023-11-18 12:40 | P.PN ---
Progress Note - Text Progress Note Date: 11/18/23 Interval history: Patient was seen bedside and was directable and agreeable to speak with check writer. Patient states that her mood is "neutral ". However, she describes her frustration over recent breakup. She also discusses her dog Montez who is helpful and hair mother who is supportive. However, patient does not describe any coping skills to help her through her difficult circumstances. She states that she generally sleeps at home and does not do much with her time. Be havioral activation encouraged and discussed. She reports having trouble with sustaining sleep last night. She is agreeable with being started on trazodone as needed for sleep. She denies any other concerns and reports fair energy during the day and good appetite. Discussed the particular side effect of weight gain with Remeron and patient was agreeable with continuing the medication. At this time patient denies any suicidal or homicidal ideations intent or plan. Denies any Auditory or visual hallucinations. Patient denies any side effects from the medications and has been compliant with meds. Mental status exam: General Appearance: Patient appears to be stated age is alert, directable, and cooperative. Behavior: No agitated behavior. Patient is calm and directable Speech: Patient's speech is fluent and nonpressured. Mood/Affect: Mood is improving mildly, affect is congruent and constricted. Suicidality/Homicidality: Patient denies having any suicidal or homicidal ideation intent or plan. Perceptions: Patient denies any auditory or visual hallucinations. Though content/process: There is no evidence of any delusional thought content and thought process is linear and goal-directed. Memory and concentration: AOX3, grossly intact for the purposes of this session Judgment and insight: improving mildly Assessment/Plan: Continue with current diagnosis. Patient continues to meet criteria for inpatient psychiatric admission for symptom stabilization and safety. Patient will be maintained on current psychotropic medication regimen. Add trazodone 50 mg daily at bedtime when necessary for sleep Monitor for medication compliance and for any psychotropic medication side effects. Will continue to monitor ongoing response to treatment. Encouraged participation in milieu.
[2023-11-18 13:04] LABS: Glucose,Whole Blood 339 mg/dL (70-110)
[2023-11-18 17:35] LABS: Glucose,Whole Blood 370 mg/dL (70-110)
[2023-11-18] MEDS: INSULIN ASPART (NovoLOG) 100 UNIT/ML VIAL SQ ONE (19:00)
[2023-11-18 19:18] LABS: Glucose,Whole Blood 386 mg/dL (70-110)
[2023-11-18 19:49] LABS: Glucose,Whole Blood 332 mg/dL (70-110)
[2023-11-18] MEDS: traZODone HCL 50 MG TAB PO PRN (23:51)
[2023-11-19 02:51] LABS: Glucose,Whole Blood 197 mg/dL (70-110)
[2023-11-19 07:37] LABS: Glucose,Whole Blood 243 mg/dL (70-110)
--- NOTE | 2023-11-19 10:59 | P.PN ---
Progress Note - Text Progress Note Date: 11/19/23 Interval history: Patient was seen bedside and was directable and agreeable to speak with program writer. Patient states that her mood is "neutral ". She states that she continues to have anxiety and requested BuSpar to be increased. She has noticed that BuSpar has been helpful and therefore is hoping that higher dose might help her calm down. She states that she is anxious about "life "and continues to feel overwhelmed at times. Patient also reports that trazodone 50 mg was not sufficient to help her with sleep. Patient also received Ativan at 0259. She was agreeable with trazodone being scheduled and increased. She denies interim concerns. She is more sedated during the daytime today but was encouraged to participate on the milieu and sleep more at nighttime. She endorses good appetite. At this time patient denies any suicidal or homicidal ideations intent or plan. Denies any Auditory or visual hallucinations. Patient denies any side effects from the medications and has been compliant with meds. Mental status exam: General Appearance: Patient appears to be stated age is alert, directable, and cooperative. Behavior: No agitated behavior. Patient is calm and directable Speech: Patient's speech is fluent and nonpressured. Mood/Affect: Mood is improving mildly, affect is congruent and constricted. Suicidality/Homicidality: Patient denies having any suicidal or homicidal ideation intent or plan. Perceptions: Patient denies any auditory or visual hallucinations. Though content/process: There is no evidence of any delusional thought content and thought process is linear and goal-directed. Memory and concentration: AOX3, grossly intact for the purposes of this session Judgment and insight: improving mildly Assessment/Plan: Continue with current diagnosis. Patient continues to meet criteria for inpatient psychiatric admission for symptom stabilization and safety. Patient will be maintained on current psychotropic medication regimen. Increase trazodone to 100 mg daily at bedtime for sleep. Increase BuSpar to 15 mg twice a day for anxiety. Monitor for medication compliance and for any psychotropic medication side effects. Will continue to monitor ongoing response to treatment. Encouraged participation in milieu.
[2023-11-19 12:28] LABS: Glucose,Whole Blood 340 mg/dL (70-110)
[2023-11-19] MEDS: busPIRone HCl 5 MG TAB PO SCH (14:07)
[2023-11-19 17:45] LABS: Glucose,Whole Blood 428 mg/dL (70-110)
[2023-11-19 20:09] LABS: Glucose,Whole Blood 286 mg/dL (70-110)
[2023-11-19] MEDS: INSULIN DETEMIR (LEVEMIR) 100 UNIT/ML SYR SQ SCH (20:41)
[2023-11-19] MEDS: traZODone HCL 100 MG TAB PO SCH (20:42)
[2023-11-20 02:07] LABS: Glucose,Whole Blood 350 mg/dL (70-110)
[2023-11-20 07:06] VITALS: BP 106/71; PULSE 73; RESP 14; TEMP 98.7
[2023-11-20 07:45] LABS: Glucose,Whole Blood 288 mg/dL (70-110)
[2023-11-20] MEDS: INSULIN DETEMIR (LEVEMIR) 100 UNIT/ML SYR SQ SCH (07:57)
[2023-11-20] MEDS: INSULIN ASPART (NovoLOG) 100 UNIT/ML VIAL SQ SCH (07:58)
--- NOTE | 2023-11-20 10:26 | P.DS ---
Providers Date of admission: 11/13/23 19:45 Expected date of discharge: 11/20/23 Attending physician: Johnny Bernard MD Consults: 11/13/23 19:53 Consult Physician Routine Consulting Provider: Dena Jose Consult Reason/Comments: INSULIN, H&P, and medical Do you want consulting provider notified?: Yes Primary care physician: Shy Salcedo - Discharge Diagnosis(es) (1) Major depressive disorder without psychotic features Current Visit: Yes Status: Acute Priority: High (2) Anxiety disorder, unspecified Current Visit: Yes Status: Acute Priority: Medium (3) Cluster B personality disorder Current Visit: Yes Status: Acute Priority: Medium (4) Cannabis use disorder Current Visit: Yes Status: Acute Priority: Medium Hospital Course: Admission HPI: Admission note was completed by play writer "Patient presented to the hospital ED on 11/11. As per EPS note, "Clinician met with Abigail in ER 14 to eval. Cl lying in bed, A/O x4 presenting with SI w attempt via cutting right wrist supperficiallly. Cl initially on PET via PD that states " Patient stated that she intends to bleed herself out via cutting." Cl is reported to have used a box icer. Cl states this was brought on by recent break up with their partner of 12 mo's including anxiety/depression over last 30 days that has increased. Cl reports hx of depression/anxiety/PTSD. Cl presents tearful, overwhelmed, anxious , crying spells, complaints of poor medical care, feels they are dehydrated, nausea, situational/circumstatial stressors. Cl states " I feel like my world is falling apart, she meant everything to me." Cl reports loss of interest, motivation, low energy, isolating at times, and aud hallucinations (muffled voices) and occasional paranoia. Cl reports using THC to cope. Cl is not working and has " lost" their soc sec benefits recently. Cl reports medical issues has added to the stress." Patient was petitioned by police, however, signed in voluntarily. Upon todays interview, she states that she is going through a really tough break up. They were together just under a year. She states that her fiance told her she had found some one else, who lives in [place]. This happened about two weeks ago. She states that she has had anxiety and depression for the past 10 years, but recently it has gotten worse. He ex called police to do a welfare check on the patient, and the open die inspector brought her into the hospital. She states that she cut her wrist with a box icer, only to self harm. She states she hears spirits talking to her. She states that her sleep has not been good, and she normally has problems sleeping. She states she has not had an appetite lately. Patient denies any suicidal or homicidal ideations intent or plan. At this time patient denies any auditory or visual hallucinations. Ada ent denies any flight of ideas racing thoughts and increased in goal directed behavior. Patient admits to using marijuana, however, UDS was negative. No cigarettes or alcohol." Hospital course: Upon admission to the unit patient was directable and agreeable to commence treatment and signed adult voluntary form. Patient got along well with other patients on the unit and followed unit protocol. Patient was compliant with the medications and denied any side effects throughout hospital course. Patient was started on Remeron increased to dose of 30 mg nightly for sleep/mood adjunct, continued on home dose of Effexor XR 150 mg nightly for mood/anxiety, BuSpar increased to dose of 20 mg at 9 AM and 2 PM for anxiety, trazodone nightly as needed for sleep. Patient spoke of her stressors and engaged in therapy both group and individual. Patient was also seen by medical team for history and physical exam. Throughout the course of the hospitalization patient gradually improved with regards to mood, anxiety, sleep and returned back to their baseline level of functioning. On the day of discharge patient denied any suicidal or homicidal ideations intent or plan denied any auditory or visual hallucinations. Patient endorsed wanting to live for her health and her future and dog. The patient denied any access to guns or weapons. Patient denied any paranoia and did not endorse any delusions. Patient does have a significant history of substance abuse and was counseled on abstaining from all substances including alcohol and marijuana. Patient elected to do outpatient substance use treatment program through [facility]. Patient was also counseled on the medications and need for regular compliance and was encouraged to follow-up with their outpatient appointment for mental health and also for primary care. Prior to discharge a family meeting will be arranged by social worker school to answer any questions and ensure safety upon discharge. Mental status exam: General Appearance: Patient appears to be mildly overweight, wearing glasses, short hair, stated age is alert, pleasant, and cooperative. Patient is in no acute distress and has improved hygiene and grooming Behavior: Patient is calmly seated without any agitated behavior. Speech: Patient's speech is fluent and nonpressured. Mood/Affect: Patient reports their mood is "better", affect is congruent and euthymic. Suicidality/Homicidality: Patient denies having any suicidal or homicidal ideation intent or plan. Perceptions: Patient denies any auditory or visual hallucinations. Though content/process: There is no evidence of any delusional thought content and thought process is linear and goal-directed. More future oriented Memory and concentration: AOX3, grossly intact for the purposes of this session. Can spell "WORLD" backwards correctly. Judgment and insight: improved with guarded prognosis Impression: Major depressive disorder, without psychotic features anxiety disorder unspecified cluster b personality disorder cannabis use disorder Plan: -Continue with discharge today as patient has improved and stabilized psychiatrically and is not currently an imminent threat to herself and/or others. Patient will remain at chronically elevated risk for harm to self and/or others due to her impulsivity and substance abuse. -Continue medications: Remeron 30 mg nightly for sleep/mood adjunct, Effexor XR 150 mg nightly for mood/anxiety, BuSpar 20 mg at 9 AM and 2 PM, trazodone 150 mg nightly as needed for sleep. -Patient was counseled on the need for medication compliance and appropriate follow-up at mental health and also primary care for medical issues. Patient verbalized understanding and agreed. -Social work to arrange for and conduct family meeting to ensure safety upon discharge and answer any questions/concerns. Social work also to arrange for patients follow up appointments with [facility] for psychiatric care along with follow up with primary care provider. -Patient counseled on abstaining from recreational drugs and marijuana and alcohol. Was informed/educated on the adverse effects on their physical and mental health. Patient verbally agreed and understood. -Patient was instructed to return to the hospital or seek immediate medical care if their psychiatric or medical symptoms do worsen or reoccur. Allergies Allergy/AdvReac Type Severity Reaction Status Date / Time fluoxetine AdvReac FACIAL TIC Verified 11/13/23 21:16 prochlorperazine AdvReac had Verified 11/13/23 21:16 From Compazine "psychotic episode" Laboratory Results WBC 13.8 k/uL (3.8-10.6) H 11/14/23 10:02 RBC 5.38 m/uL (3.80-5.40) 11/14/23 10:02 Hgb 15.5 gm/dL (11.4-16.0) 11/14/23 10:02 Hct 47.4 % (34.0-46.0) H 11/14/23 10:02 MCV 88.1 fL (80.0-100.0) 11/14/23 10:02 MCH 28.7 pg (25.0-35.0) 11/14/23 10:02 MCHC 32.6 g/dL (31.0-37.0) 11/14/23 10:02 RDW 13.3 % (11.5-15.5) 11/14/23 10:02 Plt Count 705 k/uL (150-450) H 11/14/23 10:02 MPV 6.9 11/14/23 10:02 Neutrophils % 74 % 11/14/23 10:02 Lymphocytes % 17 % 11/14/23 10:02 Monocytes % 6 % 11/14/23 10:02 Eosinophils % 1 % 11/14/23 10:02 Basophils % 0 % 11/14/23 10:02 Neutrophils # 10.1 k/uL (1.3-7.7) H 11/14/23 10:02 Lymphocytes # 2.3 k/uL (1.0-4.8) 11/14/23 10:02 Monocytes # 0.9 k/uL (0-1.0) 11/14/23 10:02 Eosinophils # 0.1 k/uL (0-0.7) 11/14/23 10:02 Basophils # 0.1 k/uL (0-0.2) 11/14/23 10:02 Sodium 135 mmol/L (137-145) L 11/15/23 10:44 Potassium 3.8 mmol/L (3.5-5.1) 11/15/23 10:44 Chloride 105 mmol/L (98-107) 11/15/23 10:44 Carbon Dioxide 17 mmol/L (22-30) L 11/15/23 10:44 Anion Gap 13 mmol/L 11/15/23 10:44 BUN 8 mg/dL (7-17) 11/15/23 10:44 Creatinine 0.66 mg/dL (0.52-1.04) 11/15/23 10:44 Est GFR (CKD-EPI)AfAm >90 (>60 ml/min/1.73 sqM) 11/15/23 10:44 Est GFR (CKD-EPI)NonAf >90 (>60 ml/min/1.73 sqM) 11/15/23 10:44 Glucose 378 mg/dL (74-99) H 11/15/23 10:44 POC Glucose (mg/dL) 288 mg/dL (70-110) H 11/20/23 07:43 POC Glu Office Machine Technician ID Leighton Chou 11/20/23 07:[address] Glu mg/dL 203 mg/dL 11/14/23 10:02 Hemoglobin A1c 8.7 % (<=6.0) H 11/14/23 10:02 Calcium 9.1 mg/dL (8.4-10.2) 11/15/23 10:44 Total Bilirubin 1.0 mg/dL (0.2-1.3) 11/14/23 10:02 AST 22 U/L (14-36) 11/14/23 10:02 ALT 17 U/L (4-34) 11/14/23 10:02 Alkaline Phosphatase 116 U/L (38-126) 11/14/23 10:02 Total Protein 7.7 g/dL (6.3-8.2) 11/14/23 10:02 Albumin 4.3 g/dL (3.5-5.0) 11/14/23 10:02 Triglycerides 118.00 mg/dL (0.00-149.00) 11/14/23 10:02 Cholesterol 100.00 mg/dL (0.00-200.00) 11/14/23 10:02 LDL Cholesterol, Calc 33.4 mg/dL (0.0-131.0) 11/14/23 10:02 VLDL Cholesterol, Calc 23.60 mg/dL (5.00-40.00) 11/14/23 10:02 HDL Cholesterol 43.00 mg/dL (40.00-60.00) 11/14/23 10:02 Cholesterol/HDL Ratio 2.33 Ratio 11/14/23 10:02 TSH 1.130 mIU/L (0.465-4.680) 11/14/23 10:02 Urine Color Yellow 11/13/23 11:04 Urine Appearance Turbid (Clear) H 11/13/23 11:04 Urine pH 5.5 (5.0-8.0) 11/13/23 11:04 Ur Specific [place] 1.023 (1.001-1.035) 11/13/23 11:04 Urine Protein Trace (Negative) H 11/13/23 11:04 Urine Glucose (UA) 1+ (Negative) H 11/13/23 11:04 Urine Ketones 2+ (Negative) H 11/13/23 11:04 Urine Blood Negative (Negative) 11/13/23 11:04 Urine Nitrite Negative (Negative) 11/13/23 11:04 Urine Bilirubin Negative (Negative) 11/13/23 11:04 Urine Urobilinogen <2.0 mg/dL (<2.0) 11/13/23 11:04 Ur Leukocyte Esterase Large (Negative) H 11/13/23 11:04 Urine RBC 2 /hpf (0-5) 11/13/23 11:04 Urine WBC 35 /hpf (0-5) H 11/13/23 11:04 Ur Squamous Epith Cells 3 /hpf (0-4) 11/13/23 11:04 Urine Bacteria Rare /hpf (None) H 11/13/23 11:04 Urine Mucus Many /hpf (None) H 11/13/23 11:04 Urine HCG, Qual Not Detected (Not Detectd) 11/13/23 11:04 Urine Opiates Screen Not Detected (NotDetected) 11/13/23 11:04 Ur Oxycodone Screen Not Detected (NotDetected) 11/13/23 11:04 Urine Methadone Screen Not Detected (NotDetected) 11/13/23 11:04 Ur Barbiturates Screen Not Detected (NotDetected) 11/13/23 11:04 U Tricyclic Antidepress Not Detected (NotDetected) 11/13/23 11:04 Ur Phencyclidine Scrn Not Detected (NotDetected) 11/13/23 11:04 Ur Amphetamines Screen Not Detected (NotDetected) 11/13/23 11:04 U Methamphetamines Scrn Not Detected (NotDetected) 11/13/23 11:04 U Benzodiazepines Scrn Detected (NotDetected) H 11/13/23 11:04 Urine Cocaine Screen Not Detected (NotDetected) 11/13/23 11:04 U Marijuana (THC) Screen Not Detected (NotDetected) 11/13/23 11:04 Acetone, Qual Negative (Negative) 11/14/23 10:02 SARS-CoV-2 (PCR) Not Detected (Not Detectd) 11/13/23 11:11 Vital Signs Temp 98.7 F 11/20/23 06:33 Pulse 73 11/20/23 06:33 Resp 14 11/20/23 06:33 BP 106/71 11/20/23 06:33 Pulse Ox 98 11/20/23 06:33 FiO2 Intake & Output 11/19/23 11/20/23 11/20/23 18:59 06:59 18:59 Weight 108.2 kg Patient Condition at Discharge: Stable Plan - Discharge Summary Discharge Rx Participant: No New Discharge Prescriptions: New busPIRone HCl [Buspar] 20 mg PO 0900,1400 30 Days #120 tab Albuterol Inhaler [Ventolin Hfa Inhaler] 2 puff INHALATION RT-Q4H PRN each PRN Reason: Shortness Of Breath Mirtazapine [Remeron] 30 mg PO HS 30 Days #60 tab traZODone HCL 150 mg PO HS PRN 30 Days #30 tablet PRN Reason: Insomnia Continue Cetirizine HCl [Zyrtec] 10 mg PO DAILY Medroxyprogesterone Acetate [Depo-Provera] 150 mg IM Q90D Ondansetron Odt [Zofran ODT] 4 mg PO Q8H PRN PRN Reason: Nausea Topiramate 100 mg PO BID Metoprolol Succinate (ER) [Toprol XL] 100 mg PO DAILY INSULIN LISPRO (For Pump) [humaLOG (For Pump)] 0.01 units SQ-PUMP CONTINUOUS MDD 120 units Pregabalin [Lyrica] 150 mg PO TID Rizatriptan Benzoate [Rizatriptan] 10 mg PO BID PRN MDD 20 MG PRN Reason: Migraine Headache Pantoprazole [Protonix] 40 mg PO DAILY 30 Days #30 tab Changed Venlafaxine HCl [Effexor XR] 150 mg PO HS 30 Days #30 cap Discontinued Albuterol Inhaler [Ventolin Hfa Inhaler] 2 puff INHALATION RT-Q4H PRN PRN Reason: Shortness Of Breath hydrOXYzine HCL [Atarax] 10 mg PO HS PRN PRN Reason: Anxiety/SLEEP Discharge Medication List Cetirizine HCl [Zyrtec] 10 mg PO DAILY 11/13/23 [History] INSULIN LISPRO (For Pump) [humaLOG (For Pump)] 0.01 units SQ-PUMP CONTINUOUS MDD 120 units 11/13/23 [History] Medroxyprogesterone Acetate [Depo-Provera] 150 mg IM Q90D 11/13/23 [History] Metoprolol Succinate (ER) [Toprol XL] 100 mg PO DAILY 11/13/23 [History] Ondansetron Odt [Zofran ODT] 4 mg PO Q8H PRN 11/13/23 [History] Pregabalin [Lyrica] 150 mg PO TID 11/13/23 [History] Rizatriptan Benzoate [Rizatriptan] 10 mg PO BID PRN MDD 20 MG 11/13/23 [History] Topiramate 100 mg PO BID 11/13/23 [History] Albuterol Inhaler [Ventolin Hfa Inhaler] 2 puff INHALATION RT-Q4H PRN each 11/20/23 [Rx] Mirtazapine [Remeron] 30 mg PO HS 30 Days #60 tab 11/20/23 [Rx] Pantoprazole [Protonix] 40 mg PO DAILY 30 Days #30 tab 11/20/23 [Rx] Venlafaxine HCl [Effexor XR] 150 mg PO HS 30 Days #30 cap 11/20/23 [Rx] busPIRone HCl [Buspar] 20 mg PO 0900,1400 30 Days #120 tab 11/20/23 [Rx] traZODone HCL 150 mg PO HS PRN 30 Days #30 tablet 11/20/23 [Rx] Follow up Appointment(s)/Referral(s): [facility] [Outside] - 11/22/23 3:15 pm ( 11/21 at 3:15pm intake) None,Stated [REFERRING] - 1-2 days Activity/Diet/Wound Care/Special Instructions: Avoid the use of street drugs and alcohol. Take all medications as prescribed. When you are in need of refills on your medications, please contact your outpatient medical provider and/or outpatient psychiatrist. Please go to your scheduled outpatient appointments for aftercare treatment. If symptoms return or become worse, call the crisis line at or and/or visit the nearest emergency room for assistance. [place] [facility] Lifeline - call or text [phone]. Discharge Disposition: HOME SELF-CARE
[2023-11-20 12:49] LABS: Glucose,Whole Blood 492 mg/dL (70-110)
[2023-11-20 12:49] LABS: Glucose,Whole Blood 526 mg/dL (70-110)
[2023-11-20 13:14] LABS: Glucose,Whole Blood 518 mg/dL (70-110)
[2023-11-20 13:29] LABS: Glucose,Whole Blood 476 mg/dL (70-110)
[2023-11-20] MEDS ORDERED: Insulin Aspart (For Pump) 100 UNIT/ML VIAL SQ-PUMP SCH (13:30)
[2023-11-20] MEDS ORDERED: INSULIN ASPART (NovoLOG) 100 UNIT/ML VIAL SQ ONE (13:30)
[2023-11-20 13:52] LABS: Glucose,Whole Blood 429 mg/dL (70-110)
[2023-11-20 14:07] LABS: Glucose,Whole Blood 419 mg/dL (70-110)
[2023-11-20 14:27] LABS: Glucose,Whole Blood 358 mg/dL (70-110)
[2023-11-20 14:53] LABS: Glucose,Whole Blood 385 mg/dL (70-110)
[2023-11-20 15:16] LABS: Glucose,Whole Blood 294 mg/dL (70-110)
--- NOTE | 2023-11-20 21:36 | CONS ---
CONSULTATION REASON FOR CONSULTATION: Advice regarding diabetes mellitus and other medical issues requested by Dr. Bernard. HISTORY OF PRESENT ILLNESS: This is a 23-year-old woman with a past medical history of multiple medical problems including major depression, anxiety, was admitted to psych floor for further evaluation. The patient was on insulin pump at home, but apparently insulin pump cannot be used at psych floor because of concerns and the patient was on insulin, but currently the patient is ready to be discharged per psych, but however, the blood sugar was found to be extremely elevated at 518 and the blood sugars are consistently more than 400 at this time. There is no history of any fever, rigors, or chills at this time. PAST MEDICAL HISTORY: Diabetes mellitus, psychiatric issues. Rest of the history and rest of the chart is also reviewed. Asthma. HOME MEDICATIONS: Reviewed include metoprolol, insulin pump. Dose and rest of medications reviewed. ALLERGIES: Fluoxetine. FAMILY HISTORY: No history of heart disease or strokes in the family. SOCIAL HISTORY: Daily THC, vaping. REVIEW OF SYSTEMS: A 14-point review is negative except as mentioned earlier. PHYSICAL EXAMINATION: VITAL SIGNS: Pulse is 73, blood pressure 106/70, respirations 14. HEENT: Conjunctivae normal. NECK: No JVD. CARDIOVASCULAR: S1, S2. RESPIRATIONS: Breath sounds diminished at the bases. No rhonchi. No crackles. ABDOMEN: Soft, nontender. LEGS: No edema. NERVOUS SYSTEM: Nonfocal. LABORATORY DATA: Reviewed. ASSESSMENT: 1. Diabetes mellitus, type 1, uncontrolled with hyperglycemia, rule out acute diabetic ketoacidosis. 2. Anxiety, depression, posttraumatic stress disorder. 3. History of asthma. 4. Fibromyalgia. 5. History of THC. RECOMMENDATIONS AND DISCUSSION: This is a 23-year-old woman admitted to the psych floor. At this time, I recommend the patient to be transferred to medical floor. Monitor blood sugars closely. Obtain stat labs including serum ketones to rule out the possibility of acute ketoacidosis. Otherwise, insulin pump may be restarted as soon as possible. Once the sugar is controlled around 200, the patient may be discharged home. Otherwise, I would recommend the patient to be monitored closely and I would also recommend psychiatry to continue followup also. Otherwise, overall prognosis as mentioned earlier extremely guarded and see orders for further details. Further recommendations to follow. MMODL / IJN: [id number] /
== END 2023-11-20 15:22 | disposition home or self-care (01) | DRG 754 ==
LOC: EC 22:52 → 3MHU 11-13 19:45
PROVIDERS: ADMIT Psychiatry & Neurology Psychiatry; ATTEND Psychiatry & Neurology Psychiatry
DX: F32.9 Major depressive disorder, single episode, unspecified (principal); E10.10 Type 1 diabetes mellitus with ketoacidosis without coma; F22 Delusional disorders; F41.9 Anxiety disorder, unspecified; F43.10 Post-traumatic stress disorder, unspecified; F60.89 Other specific personality disorders; J45.909 Unspecified asthma, uncomplicated; M79.7 Fibromyalgia; F12.10 Cannabis abuse, uncomplicated; E86.0 Dehydration; E10.65 Type 1 diabetes mellitus with hyperglycemia; S61.519A Laceration without foreign body of unspecified wrist, initial encounter; X78.8XXA Intentional self-harm by other sharp object, initial encounter; Z79.4 Long term (current) use of insulin; Z79.899 Other long term (current) drug therapy; Z96.41 Presence of insulin pump (external) (internal); Z71.89 Other specified counseling; Z71.41 Alcohol abuse counseling and surveillance of alcoholic; Z71.51 Drug abuse counseling and surveillance of drug abuser; Z88.8 Allergy status to other drugs, medicaments and biological substances
CPT/HCPCS: 36415; 80048; 80053; 80061; 80306; 81001; 81025; 82009; 82075; 83036; 84443; 85025; 87635; 99285

== ENCOUNTER 2023-11-20 14:52 | Inpatient (IN) | payer OTHER ==
[2023-11-20] MEDS ORDERED: DEXTROSE 50% SYRINGE 50 ML IVP PRN ×2 (15:59)
[2023-11-20] MEDS ORDERED: ONDANSETRON 4 MG/2 ML VIAL IVP PRN (16:03)
[2023-11-20] MEDS ORDERED: NALOXONE 0.4 MG/ML 1 ML VIAL IV PRN (16:03)
--- NOTE | 2023-11-20 16:18 | P.HPIM ---
History of Present Illness H&P Date: 11/20/23 This is a 23-year-old female with medical history significant for type 1 diabetes mellitus 1 dependent, asthma, fibromyalgia, anxiety/depression/PTSD and reports marijuana use. Patient was brought into the hospital overnight secondary to suicidal ideations was petitioned for mental health evaluation and treatment. Patient lives with mother and sister states she has good family support. Recently going through a "and breakup and other life issues." Today states overall her mood has improved. Patient is maintained on an insulin pump which has been removed while on the psychiatric unit secondary to suicidal thoughts and the safety factor of patient having this insulin pump with continuous basal insulin infusing the ability to give herself insulin at her discretion. Additionally patients continuous glucose monitoring for her pump is used with her cell phone which she is unable to have on the unit as well. Patient does report headache today, states she feels like she may be going into DKA. Her blood glucose has been increasing. Patient's urine drug toxicology did test positive for benzodiazepines, urinalysis was not suggestive of any infection there was 2+ ketones 1+ glucose, her [id number] glucose has been running in the 100s and now up to 322. We will add additional long-acting insulin. 11/20/2023 Patient is seen in follow-up today on the psych unit scheduled for discharge although blood sugars were noted to be elevated into the 400s. Medical evaluated the patient while on the psychiatric unit recommending transferring over to medicine for monitoring of blood sugars. Patient is a type I diabetic and has an insulin pump although reports she did not have the necessary supplies and any further sites to place the pump site and did not want to put it back on. Patient was given an additional 12 units of sliding scale insulin and expressed to the psychiatrist prior to discharge that she is not eating until her sugars are improved and has been refusing any further additional doses of insulin or further treatment plans. Patient and mother proceeded to make it to room 382 on 3 S. medical floor and requested AMA paperwork. Patient is not suicidal and denying any suicidal ideation or homicidal ideation. Mother wanted to take her home and they signed the paperwork. Patient walked with steady gait off of the unit. Patient refused any further blood work including CMP, acetone, CBC for further evaluation. Patient reported to nursing staff she knows how to correct her insulin levels and will be going home. This was expressed with importance prior to her being transferred to the medical floor to be compliant with medications and medical treatment. Review of systems: Constitutional: No reports of fatigue, fever, or chills Cardiovascular: No reports of chest pain or palpitations Respiratory: No reports of shortness of breath or cough GI: No reports of nausea, vomiting, or diarrhea : No reports of dysuria or retention Neurovascular: No reports of weakness or numbness All medications have been reviewed The rest of the 14-point review of systems is negative. PHYSICAL EXAMINATION: GENERAL: The patient is alert and oriented x3, not in any acute distress. Well developed, well nourished. obese HEENT: Pupils are round and equally reacting to light. EOMI. No scleral icterus. No conjunctival pallor. Normocephalic, atraumatic. No pharyngeal erythema. No thyromegaly. CARDIOVASCULAR: S1 and S2 present. No murmurs, rubs, or gallops. PULMONARY: Chest is clear to auscultation, no wheezing or crackles. ABDOMEN: Soft, nontender, nondistended, normoactive bowel sounds. No palpable organomegaly. MUSCULOSKELETAL: No joint swelling or deformity. EXTREMITIES: No cyanosis, clubbing, or pedal edema. NEUROLOGICAL: Gross neurological examination did not reveal any focal deficits. SKIN: No rashes. Assessment: Type 1 diabetes mellitus insulin-dependent patient is usually maintained on an insulin pump which has been discontinued. Discussed with nursing staff along with patient about resuming insulin pump to have better glycemic control and patient refused reporting she had no further sites to place the pump, recommend to psychiatry as well as nursing staff and patient to be moved over to medical floor for further control of hyperglycemia Suicidal ideations, improved, patient is not reporting any thoughts of suicidal ideation or homicidal ideation and has been cleared for discharge today by psychiatry Anxiety/depression/PTSD history History of asthma with no acute exacerbation History of migraines maintained on sumatriptan History of fibromyalgia Marijuana use GI prophylaxis DVT prophylaxis early ambulation Full code Plan: Patient to be sent over to the medical unit for further tight glycemic control and will initiate insulins and also discussed with the patient and family while on the psychiatric unit about reestablishing the insulin pump as patient is pump dependent although patient reported to nursing staff she has no further sites. Unsure of what she meant if it was supplies or if patient has nowhere further to put it on her body as it is a subcutaneous process. This was again enforced by nursing staff to resume insulin pump Continue Accu-Cheks before meals and at bedtime along with sliding scale and long-acting and consistent carb diet and monitor overnight for improvement in blood sugars Recommend repeat CBC, CMP, acetone, magnesium although patient is refusing patient made it to the Medical unit and proceeded to request AMA paperwork and discussed with nursing staff she understands the risk versus benefits and mother was at bedside and verbalized understanding Instructed patient to follow-up with primary care provider Discussed with nursing staff as patient would have to leave AMA as this is AGAINST MEDICAL ADVICE The impression and plan of care has been dictated by Nora Godwin, Nurse Practitioner as directed. Dr. Damon MD I have performed a history and physical examination and medical decision making of this patient, discussed the same with the dictator, and agree with the dictators assessment and plan as written, documented as a scribe. Based on total visit time, I have performed more than 50% of this visit. Past Medical History Past Medical History: Asthma, Diabetes Mellitus, Fibromyalgia Additional Past Medical History / Comment(s): ORLY History of Any Multi-Drug Resistant Organisms: None Reported Additional Past Surgical History / Comment(s): ORLY Past Anesthesia/Blood Transfusion Reactions: Unable to Obtain Past Psychological History: Anxiety, Depression, PTSD Smoking Status: Vaper Past Alcohol Use History: Rare Past Drug Use History: Marijuana Medications and Allergies Home Medications Medication Instructions Recorded Confirmed Type Cetirizine HCl [Zyrtec] 10 mg PO DAILY 11/13/23 11/13/23 History INSULIN LISPRO (For Pump) [humaLOG 0.01 units SQ-PUMP CONTINUOUS MDD 11/13/23 11/13/23 History (For Pump)] 120 units Medroxyprogesterone Acetate 150 mg IM Q90D 11/13/23 11/13/23 History [Depo-Provera] Metoprolol Succinate (ER) [Toprol 100 mg PO DAILY 11/13/23 11/13/23 History XL] Ondansetron Odt [Zofran ODT] 4 mg PO Q8H PRN 11/13/23 11/13/23 History Pregabalin [Lyrica] 150 mg PO TID 11/13/23 11/13/23 History Rizatriptan Benzoate [Rizatriptan] 10 mg PO BID PRN MDD 20 MG 11/13/23 11/13/23 History Topiramate 100 mg PO BID 11/13/23 11/13/23 History Albuterol Inhaler [Ventolin Hfa 2 puff INHALATION RT-Q4H PRN each 11/20/23 Rx Inhaler] Mirtazapine [Remeron] 30 mg PO HS 30 Days #60 tab 11/20/23 Rx Pantoprazole [Protonix] 40 mg PO DAILY 30 Days #30 tab 11/20/23 Rx Venlafaxine HCl [Effexor XR] 150 mg PO HS 30 Days #30 cap 11/20/23 Rx busPIRone HCl [Buspar] 20 mg PO BID@0900,1400 11/20/23 11/20/23 History traZODone HCL 150 mg PO HS PRN 30 Days #30 tablet 11/20/23 Rx Allergies Allergy/AdvReac Type Severity Reaction Status Date / Time fluoxetine AdvReac FACIAL TIC Verified 11/13/23 21:16 prochlorperazine AdvReac had Verified 11/13/23 21:16 [From Compazine] "psychotic episode"
--- NOTE | 2023-11-20 16:23 | P.DS ---
Providers Date of admission: 11/20/23 14:52 Expected date of discharge: 11/20/23 Attending physician: Dena Jose Hospital Course: Final diagnosis Type 1 diabetes mellitus insulin-dependent patient is usually maintained on an insulin pump which has been discontinued. Discussed with nursing staff along with patient about resuming insulin pump to have better glycemic control and patient refused reporting she had no further sites to place the pump, recommend to psychiatry as well as nursing staff and patient to be moved over to medical floor for further control of hyperglycemia Suicidal ideations, improved, patient is not reporting any thoughts of suicidal ideation or homicidal ideation and has been cleared for discharge today by psychiatry Anxiety/depression/PTSD history History of asthma with no acute exacerbation History of migraines maintained on sumatriptan History of fibromyalgia Marijuana use GI prophylaxis DVT prophylaxis early ambulation Full code Discharge disposition Patient has left AGAINST MEDICAL ADVICE. Risk versus benefits were explained and patient proceeded to leave with mother after signing AMA paperwork. Patient will follow-up with Dr. Salcedo's office [employer] in the outpatient setting upon discharge. Patient is to continue with current medications and outpatient follow-up with [facility] as scheduled. Total time taken is greater than 35 minutes. Hospital course This is a 23-year-old female who was recently admitted with suicidal ideations and was on psychiatric unit and was discharged today although blood sugars were found to be in the 400s. Patient has been noncompliant with medications entire hospitalization including insulins as patient normally takes an insulin pump although due to suicidal ideations per protocol patient was unable to use her pump while at psychiatric unit. On discharge instructed nursing staff to resume insulin pump and monitor for a few hours with increased sliding scale although patient refused any increased dosing and also reported to psychiatric staff that she was not eating until her blood sugars were improved as this is how she controls her blood sugars. Patient is being sent over to the medical unit for further glycemic control including repeat labs with CBC, CMP, acetone and patient refused. Upon arrival to the medical floor patient and mother requesting AMA paperwork and signed the paperwork and left with a steady gait walking out. Again risk versus benefits were explained including and patient agreeable to sign the paperwork and left. Please refer to other consultation notes along with psychiatry notes for further HPI. Discussed the option with family of petitioning the patient and they were not agreeable to this. They were agreeable to take the patient home. Currently no reports of chest pain, shortness of breath, or palpitations. Patient is afebrile. No reports of nausea or vomiting and patient is tolerating diet. Patient will be going to [facility] today. Physical exam: Gen: This is a 23-year-old female who is awake, alert and oriented x 3, well- developed, obese, anxious HEENT: Head is atraumatic, normocephalic. Pupils equal, round. Sclerae is anicteric. NECK: Supple. No JVD. No lymphadenopathy. No thyromegaly. LUNGS: Clear to auscultation. No wheezes or rhonchi. No intercostal retractions. HEART: Regular rate and rhythm. No murmur. ABDOMEN: Soft. Obese bowel sounds are present. No masses. No tenderness. EXTREMITIES: No pedal edema. No calf tenderness. NEUROLOGICAL: Patient is awake, alert and oriented x3. Cranial nerves 2 through 12 are grossly intact. Please refer to medication reconciliation sheet for a list of medications. The impression and plan of care has been dictated by Nora Godwin, Nurse Practitioner as directed. Dr. Damon MD I have performed a history and examination and MDM of this patient, discussed the same with the dictator, and agree with the dictator's assessment and plan as written ,documented as a scribe. Based on total visit time, I have performed more than 50% of the visit. Patient Condition at Discharge: Undetermined Plan - Discharge Summary New Discharge Prescriptions: No Action Cetirizine HCl [Zyrtec] 10 mg PO DAILY Medroxyprogesterone Acetate [Depo-Provera] 150 mg IM Q90D Ondansetron Odt [Zofran ODT] 4 mg PO Q8H PRN PRN Reason: Nausea Topiramate 100 mg PO BID Metoprolol Succinate (ER) [Toprol XL] 100 mg PO DAILY Albuterol Inhaler [Ventolin Hfa Inhaler] 2 puff INHALATION RT-Q4H PRN each PRN Reason: Shortness Of Breath INSULIN LISPRO (For Pump) [humaLOG (For Pump)] 0.01 units SQ-PUMP CONTINUOUS MDD 120 units Pregabalin [Lyrica] 150 mg PO TID Rizatriptan Benzoate [Rizatriptan] 10 mg PO BID PRN MDD 20 MG PRN Reason: Migraine Headache Mirtazapine [Remeron] 30 mg PO HS 30 Days #60 tab traZODone HCL 150 mg PO HS PRN 30 Days #30 tablet PRN Reason: Insomnia Venlafaxine HCl [Effexor XR] 150 mg PO HS 30 Days #30 cap Pantoprazole [Protonix] 40 mg PO DAILY 30 Days #30 tab busPIRone HCl [Buspar] 20 mg PO BID@0900,1400 Discharge Medication List Cetirizine HCl [Zyrtec] 10 mg PO DAILY 11/13/23 [History] INSULIN LISPRO (For Pump) [humaLOG (For Pump)] 0.01 units SQ-PUMP CONTINUOUS MDD 120 units 11/13/23 [History] Medroxyprogesterone Acetate [Depo-Provera] 150 mg IM Q90D 11/13/23 [History] Metoprolol Succinate (ER) [Toprol XL] 100 mg PO DAILY 11/13/23 [History] Ondansetron Odt [Zofran ODT] 4 mg PO Q8H PRN 11/13/23 [History] Pregabalin [Lyrica] 150 mg PO TID 11/13/23 [History] Rizatriptan Benzoate [Rizatriptan] 10 mg PO BID PRN MDD 20 MG 11/13/23 [History] Topiramate 100 mg PO BID 11/13/23 [History] Albuterol Inhaler [Ventolin Hfa Inhaler] 2 puff INHALATION RT-Q4H PRN each [Rx] Mirtazapine [Remeron] 30 mg PO HS 30 Days #60 tab 11/20/23 [Rx] Pantoprazole [Protonix] 40 mg PO DAILY 30 Days #30 tab 11/20/23 [Rx] Venlafaxine HCl [Effexor XR] 150 mg PO HS 30 Days #30 cap 11/20/23 [Rx] busPIRone HCl [Buspar] 20 mg PO BID@0900,1400 11/20/23 [History] traZODone HCL 150 mg PO HS PRN 30 Days #30 tablet 11/20/23 [Rx]
[2023-11-20] MEDS ORDERED: INSULIN ASPART (NovoLOG) 100 UNIT/ML VIAL SQ SCH (17:30)
[2023-11-20] MEDS ORDERED: INSULIN DETEMIR (LEVEMIR) 100 UNIT/ML SYR SQ SCH (21:00)
== END 2023-11-20 16:08 | disposition left against medical advice (07) | DRG 420 ==
LOC: 3SCARD 14:52
PROVIDERS: ADMIT Hospitalist; ATTEND Hospitalist
DX: E10.65 Type 1 diabetes mellitus with hyperglycemia (principal); Z96.41 Presence of insulin pump (external) (internal); Z79.4 Long term (current) use of insulin; F32.A Depression, unspecified; F41.9 Anxiety disorder, unspecified; G43.909 Migraine, unspecified, not intractable, without status migrainosus; F43.10 Post-traumatic stress disorder, unspecified; J45.909 Unspecified asthma, uncomplicated; M79.7 Fibromyalgia; R45.851 Suicidal ideations; Z79.899 Other long term (current) drug therapy; Z91.148 Patient's other noncompliance with medication regimen for other reason; Z53.20 Procedure and treatment not carried out because of patient's decision for unspecified reasons